=== PATIENT | male | born 1975 | race Native Hawaiian/Other Pacific Islander ===

== ENCOUNTER 2019-02-23 14:31 | Outpatient (CLI) | payer OTHER | END 2019-02-23 22:51 | disposition home or self-care (01) | LOC: RAD 14:31 | DX: M79.642 Pain in left hand (principal) ==

== ENCOUNTER 2022-04-04 16:03 | Outpatient (CLI) | payer OTHER | END 2022-04-04 19:39 | disposition home or self-care (01) | LOC: RAD 16:03 | PROVIDERS: ATTEND Internal Medicine | DX: R79.89 Other specified abnormal findings of blood chemistry (principal); D72.828 Other elevated white blood cell count ==